=== PATIENT | female | born 1990 | race Caucasian/White ===

== ENCOUNTER 2023-06-10 07:47 | Outpatient (CLI) | payer BC | END 2023-06-10 07:48 | disposition home or self-care (01) | LOC: CSHMRI 07:47 | PROVIDERS: ATTEND Orthopaedic Surgery | DX: M51.26 Other intervertebral disc displacement, lumbar region (principal); S32.10XA Unspecified fracture of sacrum, initial encounter for closed fracture | CPT/HCPCS: 72148 ==